=== PATIENT | female | born 2005 | race Hispanic/Latino ===

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

== ENCOUNTER 2023-11-16 20:51 | Emergency (ER) | payer BC, MEDICAID ==
[~2023-11-16] VITALS: Ht 160 cm; Wt 68.0 kg
[~2023-11-16 20:51] MED LIST changes: +CEPH500B PO; +ONDA4TAB10 PO; +POLY17PO4 PO
[2023-11-16 22:04] VITALS: BP 132/80; PULSE 80; RESP 18; O2SAT 100
== END 2023-11-16 22:06 | disposition home or self-care (01) ==
LOC: EDH 20:51
DX: Z04.9 Encounter for examination and observation for unspecified reason (principal)
CPT/HCPCS: 81025